=== PATIENT | male | born 1990 | race Caucasian/White ===

== ENCOUNTER 2016-07-09 20:33 | Emergency (ER) | payer OTHER ==
--- NOTE | 2016-07-09 22:02 | ED NURSING NOTES ---
Clinical Report - Nurses [facility] [address] [place] [address] 07/09/2016 20:35 Patient: ANTHONY DOMINIQUE TRIAGE Triage time 20:44. Acuity: LEVEL 3. Chief Complaint: LEFT UPPER EXTREMITY PAIN. Location of symptoms- left 5th finger (lac 2-3cm, pressure held in triage). Alert. No acute distress. SEPSIS SCREEN: Sepsis Screen. Negative (no infection suspected/documented). JAI COMA SCORE: Jai Coma Scale: 15- eyes open spontaneously (4); best verbal response- oriented x 4 (5); best motor response- obeys commands (6). --20:48 Ramon Tirado R.N. 20:46 07/09/16. BP: 138/84. HR: 76. RR: 20. O2 saturation: 100% on room air. Temp: 98.6 F (oral). Pain level now 8/10. --20:48 Ramon Tirado R.N. Weight: 74.8 kg stated. Height/Length: 71 inches Per Patient. BMI: 23. --20:46 Ramon Tirado R.N. Medications None. --20:48 Ramon Tirado R.N. Allergies No Known Drug Allergy. --20:48 Ramon Tirado R.N. Medication/allergy information source: the patient. --20:48 Ramon Tirado R.N. History ( lac to left 5th finger. 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 Injury occurred. This occurred just prior to arrival. Occurred at home. Treatment MUTUAL FUND ACCOUNTANT: None. PAST MEDICAL HX: Tetanus status: up-to-date. SOCIAL HX: Heavy tobacco smoker (cigarette)- less than 1 pack per day. Occasional alcohol use. History of drug use: marijuana. FALL RISK ASSESSMENT: Fall risk assessment completed. No fall risk identified. NUTRITIONAL RISK ASSESSMENT: The nutritional risk assessment revealed no deficiencies. FUNCTIONAL ASSESSMENT: Functional assessment: no impairments noted. LEARNING NEEDS ASSESSMENT: The learning needs assessment revealed no barriers. SKIN INTEGRITY ASSESSMENT: Skin integrity risk assessment completed. No skin integrity risk identified. --20:48 Ramon Tirado R.N. PROBLEMS: no known problems. ADDITIONAL SURGERIES: no known surgeries. Interventions ID band on patient. To treatment room. --20:48 Ramon Tirado R.N. PHYSICAL ASSESSMENT Ambulatory to room. GENERAL / NEURO / PSYCH: Oriented X 4. Alert. Appears in pain. EXTREMITIES: Neuro-vascular status intact to the extremity. Left hand: deep 2.5 cm laceration with bleeding. SKIN: Skin is warm. --20:49 Ramon Tirado R.N. NURSING PROGRESS NOTES 20:49 07/09/16. The plan of care for this patient has been created. Call light placed in reach. Bed placed in lowest position. Brakes of bed on. Patient ready for evaluation- chart flagged. --20:49 Ramon Tirado R.N. ( wound cleansed and irrigated with sodium chloride @ 2140). --21:45 Ashley Graham 22:24 07/09/2016 Ancef (CeFAZolin Sodium) IM 2 gm given. Given in the right anterior lateral thigh and left anterior lateral thigh (split dose). Allergies verified and confirmed 5 rights. (reconstituted with 2.5ml 1% lidocaine as verified by pharmacy). --22:31 Ramon Tirado R.N. DISPOSITION / DISCHARGE 22:32 07/09/16. Departure time: 2231. Condition at departure: improved and stable. No learning barriers present. Discharge instructions provided and reviewed with the patient and family. Reviewed medication(s) side effects, precautions, dosing and course information. Prescription(s) given to the patient. Patient and family verbalized understanding. Written instructions provided in Mongolian. ( suture removal in 7 days.). The patient was discharged by the physician housing assistant. He was discharged home and accompanied by parent. He left the Emergency Department ambulatory and via private vehicle. Parent driving. --22:32 Ramon Tirado R.N. 22:31 07/09/16. BP: 130/84. HR: 82. RR: 16. O2 saturation: 100% on room air. Pain level now 0/10. --22:32 Ramon Tirado R.N. Locked/Released at 07/09/2016 22:44 by Ramon Tirado R.N.
--- NOTE | 2016-07-09 22:02 | ED CLINICAL REPORT ---
Clinical Report - Physicians/Mid Levels [facility] [address] [place] [address] 07/09/2016 20:35 Patient: ANTHONY DOMINIQUE Time Seen: 21:13 Jul 09 2016. Arrived- By private vehicle. Historian- patient (step dad). HISTORY OF PRESENT ILLNESS Chief Complaint: Injury to the left 5th (little) finger. The injury happened just prior to arrival. The patient sustained a laceration. Occurred at home. Patient is experiencing mild pain. Patient denies injury to the head or neck. ( Sustained a laceration from a night just prior to arrival, while attempting to car. Denies any difficulty with movement. Denies prior injury to the area. Last tetanus medication in the last few years.). REVIEW OF SYSTEMS The patient sustained a laceration. No tingling or numbness. All systems otherwise negative, except as recorded above. PAST HISTORY The patient's dominant hand is the right. He has not had a prior injury to the same area. Tetanus immunization status is up-to-date. SOCIAL HISTORY Smoker- current status unknown. Alcohol use. History of drug use: marijuana. ADDITIONAL NOTES The nursing notes have been reviewed. PHYSICAL EXAM Vital Signs: 07/09/2016 20:46 BP: 138/84. HR: 76. RR: 20. O2 saturation: 100%. Temp: 98.6 F. Appearance: Alert. No acute distress. Head: Head atraumatic. ENT: Ears normal. CVS: Normal heart rate and rhythm. Heart sounds normal. Respiratory: No respiratory distress. Breath sounds normal. Skin: Skin warm. Extremities: Left hand web space. No tenderness or swelling. Left little finger: 2.0 cm laceration of the ulnar aspect- SEE LACERATION PROCEDURE NOTE #1; (lateral ulnar lac into the tip with minimal extension of lateral aspect of nail. no nail bed involvement. Tender, gaping open). No ecchymosis or foreign body. No limitation in movement. No subungual hematoma or amputation present. No wrist injury. Neuro, Vascular and Tendons: Vascular status intact. Motor intact. Neuro: Oriented X 3. LABS, X-RAYS, AND EKG Lt UE Digits X-ray: (IMPRESSION: 1. Minimally distracted avulsion fracture of the base of the middle phalanx, left fifth finger. 2. Findings discussed with MIKE Abdullahi. Electronically Final signed by:Faisal Clifford MD 07/09/2016 10:04:09 PM). PROGRESS AND PROCEDURES Laceration Repair: Time: 2214Jul 09 2016. Location: (left 5th digit). Time-out completed immediately before the procedure. Length: 2 cm. Complexity: simple (local anesthesia used and sutured). Subcutaneous closure: interrupted 4-0 (6 sutures). Post-procedure: he is stable and there are no complications. Bleeding is controlled and neuro-vascular status is intact distal to the wound. Dressing applied. Course of Care: Questionable avulsion, and setting of an open wound, will treat. Patient with immunizations are up-to-date, given Ancef 2 g in the emergency department, continued to continue Keflex. Splint applied as well, for comfort. 07/09/2016 22:31 BP: 130/84. HR: 82. RR: 16. O2 saturation: 100%. Patient is stable. Symptoms better. Patient/family counseled. Disposition: Discharged. CLINICAL IMPRESSION Distal phalanx fracture of the left little finger. Laceration to the left little finger.No foreign body present or left fingernail injury. INSTRUCTIONS Elevate affected areas above chest level. Protect wound and keep wound area clean. Clean wounds with hydrogen peroxide. Sutures/ellis should be removed in seven days. [facility]: [address], [place] [address] ). Prescription Medications: Cephalexin 500 mg: take 1 capsule orally every 8 hours for 10 days. No refill. OTC Medications: Take OTC medications according to label instructions. Available over the counter. Acetaminophen (available over the counter): take according to label instructions. Motrin (available over the counter): take according to label instructions. Follow-up: Follow up with your doctor in seven days. Understanding of the discharge instructions verbalized by patient. [facility]-up with: [facility], , [address], [facility] [address] Follow up in seven days. (Electronically signed by Loreta Man P.A.-C 07/09/2016 22:43)
--- NOTE | 2016-07-09 22:02 | ED ORDER SUMMARY ---
..... Patient: ANTHONY DOMINIQUE OrderSheet [facility] VisitID: [id number] [place] [address] 25y, M Registration Date/Time: 07/09/2016 ORDER SHEET Weight: 74.8 kg (stated) Allergies: No Known Drug Allergy GENERAL ORDERS: Finger Left (5) Urgent (21:08 07/09/2016 EKoroleva P.A.-C) (Ack 21:10 LMuller) (22:17 JQuivey R.N.) Wound Irrigation (21:26 07/09/2016 EKoroleva P.A.-C) (21:48 JQuivey R.N.) MEDICATION ORDERS: Ancef IM 2 gm (NOW) (22:08 07/09/2016 EKorolefaisal P.A.-C) (22:31 KWilliams R.N.) IV FLUIDS: ORDER SHEET NOTES: [Electronically signed by Loreta ManATano-C (22:43 07/09/2016)] [Electronically signed by Ramon Tirado R.N. (22:44 07/09/2016)] [Electronically locked/signed by Ramon Tirado R.N. (22:44 07/09/2016)]
--- NOTE | 2016-07-09 22:02 | ED NURSING NOTES ---
Clinical Report - Nurses [facility] [address] [place] [address] 07/09/2016 20:35 Patient: ANTHONY DOMINIQUE TRIAGE Triage time 20:44. Acuity: LEVEL 3. Chief Complaint: LEFT UPPER EXTREMITY PAIN. Location of symptoms- left 5th finger (lac 2-3cm, pressure held in triage). Alert. No acute distress. SEPSIS SCREEN: Sepsis Screen. Negative (no infection suspected/documented). JAI COMA SCORE: Jai Coma Scale: 15- eyes open spontaneously (4); best verbal response- oriented x 4 (5); best motor response- obeys commands (6). --20:48 Ramon Tirado R.N. 20:46 07/09/16. BP: 138/84. HR: 76. RR: 20. O2 saturation: 100% on room air. Temp: 98.6 F (oral). Pain level now 8/10. --20:48 Ramon Tirado R.N. Weight: 74.8 kg stated. Height/Length: 71 inches Per Patient. BMI: 23. --20:46 Ramon Tirado R.N. Medications None. --20:48 Ramon Tirado R.N. Allergies No Known Drug Allergy. --20:48 Ramon Tirado R.N. Medication/allergy information source: the patient. --20:48 Ramon Tirado R.N. History ( lac to left 5th finger. 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 Injury occurred. This occurred just prior to arrival. Occurred at home. Treatment SUBWAY OPERATOR: None. PAST MEDICAL HX: Tetanus status: up-to-date. SOCIAL HX: Heavy tobacco smoker (cigarette)- less than 1 pack per day. Occasional alcohol use. History of drug use: marijuana. FALL RISK ASSESSMENT: Fall risk assessment completed. No fall risk identified. NUTRITIONAL RISK ASSESSMENT: The nutritional risk assessment revealed no deficiencies. FUNCTIONAL ASSESSMENT: Functional assessment: no impairments noted. LEARNING NEEDS ASSESSMENT: The learning needs assessment revealed no barriers. SKIN INTEGRITY ASSESSMENT: Skin integrity risk assessment completed. No skin integrity risk identified. --20:48 Ramon Tirado R.N. PROBLEMS: no known problems. ADDITIONAL SURGERIES: no known surgeries. Interventions ID band on patient. To treatment room. --20:48 Ramon Tirado R.N. PHYSICAL ASSESSMENT Ambulatory to room. GENERAL / NEURO / PSYCH: Oriented X 4. Alert. Appears in pain. EXTREMITIES: Neuro-vascular status intact to the extremity. Left hand: deep 2.5 cm laceration with bleeding. SKIN: Skin is warm. --20:49 Ramon Tirado R.N. NURSING PROGRESS NOTES 20:49 07/09/16. The plan of care for this patient has been created. Call light placed in reach. Bed placed in lowest position. Brakes of bed on. Patient ready for evaluation- chart flagged. --20:49 Ramon Tirado R.N. ( wound cleansed and irrigated with sodium chloride @ 2140). --21:45 Ashley Graham 22:24 07/09/2016 Ancef (CeFAZolin Sodium) IM 2 gm given. Given in the right anterior lateral thigh and left anterior lateral thigh (split dose). Allergies verified and confirmed 5 rights. (reconstituted with 2.5ml 1% lidocaine as verified by pharmacy). --22:31 Ramon Tirado R.N. DISPOSITION / DISCHARGE 22:32 07/09/16. Departure time: 2231. Condition at departure: improved and stable. No learning barriers present. Discharge instructions provided and reviewed with the patient and family. Reviewed medication(s) side effects, precautions, dosing and course information. Prescription(s) given to the patient. Patient and family verbalized understanding. Written instructions provided in Niuean. ( suture removal in 7 days.). The patient was discharged by the physician business banking sales assistant. He was discharged home and accompanied by parent. He left the Emergency Department ambulatory and via private vehicle. Parent driving. --22:32 Ramon Tirado R.N. 22:31 07/09/16. BP: 130/84. HR: 82. RR: 16. O2 saturation: 100% on room air. Pain level now 0/10. --22:32 Ramon Tirado R.N. Locked/Released at 07/09/2016 22:44 by Ramon Tirado R.N.
--- NOTE | 2016-07-09 22:02 | ED CLINICAL REPORT ---
Clinical Report - Physicians/Mid Levels [facility] [address] [place] [address] 07/09/2016 20:35 Patient: ANTHONY DOMINIQUE Time Seen: 21:13 Jul 09 2016. Arrived- By private vehicle. Historian- patient (step dad). HISTORY OF PRESENT ILLNESS Chief Complaint: Injury to the left 5th (little) finger. The injury happened just prior to arrival. The patient sustained a laceration. Occurred at home. Patient is experiencing mild pain. Patient denies injury to the head or neck. ( Sustained a laceration from a night just prior to arrival, while attempting to car. Denies any difficulty with movement. Denies prior injury to the area. Last tetanus medication in the last few years.). REVIEW OF SYSTEMS The patient sustained a laceration. No tingling or numbness. All systems otherwise negative, except as recorded above. PAST HISTORY The patient's dominant hand is the right. He has not had a prior injury to the same area. Tetanus immunization status is up-to-date. SOCIAL HISTORY Smoker- current status unknown. Alcohol use. History of drug use: marijuana. ADDITIONAL NOTES The nursing notes have been reviewed. PHYSICAL EXAM Vital Signs: 07/09/2016 20:46 BP: 138/84. HR: 76. RR: 20. O2 saturation: 100%. Temp: 98.6 F. Appearance: Alert. No acute distress. Head: Head atraumatic. ENT: Ears normal. CVS: Normal heart rate and rhythm. Heart sounds normal. Respiratory: No respiratory distress. Breath sounds normal. Skin: Skin warm. Extremities: Left hand web space. No tenderness or swelling. Left little finger: 2.0 cm laceration of the ulnar aspect- SEE LACERATION PROCEDURE NOTE #1; (lateral ulnar lac into the tip with minimal extension of lateral aspect of nail. no nail bed involvement. Tender, gaping open). No ecchymosis or foreign body. No limitation in movement. No subungual hematoma or amputation present. No wrist injury. Neuro, Vascular and Tendons: Vascular status intact. Motor intact. Neuro: Oriented X 3. LABS, X-RAYS, AND EKG Lt UE Digits X-ray: (IMPRESSION: 1. Minimally distracted avulsion fracture of the base of the middle phalanx, left fifth finger. 2. Findings discussed with MIKE Abdullahi. Electronically Final signed by:Faisal Clifford MD 07/09/2016 10:04:09 PM). PROGRESS AND PROCEDURES Laceration Repair: Time: 2214Jul 09 2016. Location: (left 5th digit). Time-out completed immediately before the procedure. Length: 2 cm. Complexity: simple (local anesthesia used and sutured). Subcutaneous closure: interrupted 4-0 (6 sutures). Post-procedure: he is stable and there are no complications. Bleeding is controlled and neuro-vascular status is intact distal to the wound. Dressing applied. Course of Care: Questionable avulsion, and setting of an open wound, will treat. Patient with immunizations are up-to-date, given Ancef 2 g in the emergency department, continued to continue Keflex. Splint applied as well, for comfort. 07/09/2016 22:31 BP: 130/84. HR: 82. RR: 16. O2 saturation: 100%. Patient is stable. Symptoms better. Patient/family counseled. Disposition: Discharged. CLINICAL IMPRESSION Distal phalanx fracture of the left little finger. Laceration to the left little finger.No foreign body present or left fingernail injury. INSTRUCTIONS Elevate affected areas above chest level. Protect wound and keep wound area clean. Clean wounds with hydrogen peroxide. Sutures/ellis should be removed in seven days. ([facility] Address: [address], [place] [address] ). Prescription Medications: Cephalexin 500 mg: take 1 capsule orally every 8 hours for 10 days. No refill. OTC Medications: Take OTC medications according to label instructions. Available over the counter. Acetaminophen (available over the counter): take according to label instructions. Motrin (available over the counter): take according to label instructions. Follow-up: Follow up with your doctor in seven days. Understanding of the discharge instructions verbalized by patient. Follow-up with: [facility], , [address], [facility] [address] Follow up in seven days. (Electronically signed by Loreta Man P.A.-C 07/09/2016 22:43)
--- NOTE | 2016-07-09 22:02 | ED ORDER SUMMARY ---
..... Patient: ANTHONY DOMINIQUE OrderSheet [facility] VisitID: [id number] [place] [address] 25y, M Registration Date/Time: 07/09/2016 ORDER SHEET Weight: 74.8 kg (stated) Allergies: No Known Drug Allergy GENERAL ORDERS: Finger Left (5) Urgent (21:08 07/09/2016 EKoroleva P.A.-C) (Ack 21:10 LMuller) (22:17 JQuivey R.N.) Wound Irrigation (21:26 07/09/2016 EKoroleva P.A.-C) (21:48 JQuivey R.N.) MEDICATION ORDERS: Ancef IM 2 gm (NOW) (22:08 07/09/2016 EKorolefaisal P.A.-C) (22:31 KWilliams R.N.) IV FLUIDS: ORDER SHEET NOTES: [Electronically signed by Loreta ManATano-C (22:43 07/09/2016)] [Electronically signed by Ramon Tirado R.N. (22:44 07/09/2016)] [Electronically locked/signed by Ramon Tirado R.N. (22:44 07/09/2016)]
--- NOTE | 2016-07-09 22:07 | DIAGNOSTIC IMAGING REPORT ---
PROCEDURE: XR FINGER - LEFT (fifth finger). INDICATION: TRAUMA/INJURY TECHNIQUE: Three views. COMPARISON: None. FINDINGS: There is a minimally distracted 1 mm avulsion fracture of the volar base, middle phalanx, left fifth finger. The rest the osseous structures are normal. IMPRESSION: 1. Minimally distracted avulsion fracture of the base of the middle phalanx, left fifth finger. 2. Findings discussed with PAC. Bradly
--- NOTE | 2016-07-09 22:44 | ED DISCHARGE INSTRUCTIONS ---
Patient: ANTHONY DOMINIQUE General Instructions [facility] VisitID: [id number] [address] [place] [address] 25y, M Registration Date/Time: 07/09/2016 Distal phalanx fracture of the left little finger. Laceration to the left little finger.No foreign body present or left fingernail injury. INSTRUCTIONS Elevate affected areas above chest level. Protect wound and keep wound area clean. Clean wounds with hydrogen peroxide. Sutures/ellis should be removed in seven days. ([facility] Address: [address] [place] [address] ). Prescription Medications: Cephalexin 500 mg: take 1 capsule orally every 8 hours for 10 days. No refill. OTC Medications: Take OTC medications according to label instructions. Available over the counter. Acetaminophen (available over the counter): take according to label instructions. Motrin (available over the counter): take according to label instructions. Follow-up: Follow up with your doctor in seven days. Understanding of the discharge instructions verbalized by patient. [facility] with: [facility], , [address], [place] [address] Follow up in seven days. ADDITIONAL INFORMATION Laceration, Extremity (Sutures, [place], Or Tape) A laceration is a cut through the skin. This will usually require stitches (sutures) or ellis if it is deep. Minor cuts may be treated with surgical tape closures. Home care The following guidelines will help you care for your laceration at home: Keep the wound clean and dry. If a bandage was applied and it becomes wet or dirty, replace it. Otherwise, leave it in place for the first 24 hours, then change it once a day or as directed. If stitches or ellis were used, clean the wound daily: After removing the bandage, wash the area with soap and water. Use a wet cotton swab to loosen and remove any blood or crust that forms. After cleaning, keep the wound clean and dry. Talk with your doctor before applying any antibiotic ointment to the wound. Reapply the bandage. You may remove the bandage to shower as usual after the first 24 hours, but do not soak the area in water (no swimming) until the stitches or ellis are removed. If surgical tape closures were used, keep the area clean and dry. If it becomes wet, blot it dry with a towel. The doctor may prescribe an antibiotic cream or ointment to prevent infection. Do not stop taking this medication until you have finished the prescribed course or the doctor tells you to stop. The doctor may also prescribe medications for pain. Follow the doctors instructions for taking these medications. If you have chronic liver or kidney disease or ever had a stomach ulcer or GI bleeding, talk with your doctor before using these medicines. Follow-up care Follow up with your health care provider. Most skin wounds heal within ten days. However, an infection may sometimes occur despite proper treatment. Therefore, check the wound daily for the signs of infection listed below. Stitches and ellis should be removed within 714 days. If surgical tape closures were used, you may remove them after 10 days, if they have not fallen off by then. Notify your doctor if you notice persistent numbness or weakness in the injured extremity. (Note:A radiologist will review any X-rays that were taken. We will notify you of any new findings that may affect your care.) When to seek medical care Get prompt medical attention if any of these occur: Increasing pain in the wound Redness, swelling, or pus coming from the wound Fever of 100.4F (38C) or higher, or as directed by your health care provider If stitches or ellis come apart or fall out before your next appointment If the surgical tape closures fall off within seven days, or the wound edges re-open Bleeding not controlled by direct pressure Fracture:Finger [Open] You have a fracture of your finger (broken finger) with a nearby cut, puncture or deep scrape. This causes local pain, swelling and bruising. Because of the open injury, there is a risk of infection in the skin and bone. Antibiotics will be used to lower the risk of infection. This injury takes about four weeks to heal. Finger injuries are often treated with a splint, cast or by taping the injured finger to the next one ("lee taping"). This protects the injured finger and holds the bone in position while it heals. More serious fractures may require surgery. If the FINGERNAIL has been severely injured, it will probably fall off in 1-2 weeks. A new fingernail will usually start to grow back within a month. Home Care: Keep your hand elevated to reduce pain and swelling. When sitting or lying down elevate your arm above the level of your heart. You can do this by placing your arm on a pillow that rests on your chest or on a pillow at your side. This is most important during the first 48 hours after injury. Apply an ice pack (ice cubes in a plastic bag, wrapped in a towel) over the injured area for 20 minutes every 1-2 hours the first day for pain relief. Continue this 3-4 times a day until the pain and swelling goes away. Keep the cast/splint completely dry at all times. Bathe with your cast/splint out of the water, protected with a large plastic bag, rubber-banded at the top end. If a fiberglass cast/splint gets wet, you can dry it with a hair-dryer. If lee tape was applied and it becomes wet or dirty, change it. You may replace it with paper, plastic or cloth tape. Cloth tape and paper tapes must be kept dry. Keep the lee tape in place for at least four weeks. You may use acetaminophen (Tylenol) or ibuprofen (Motrin, Advil) to control pain, unless another pain medicine was prescribed. [ NOTE : If you have chronic liver or kidney disease or ever had a stomach ulcer or GI bleeding, talk with your doctor before using these medicines.] Take all antibiotics until finished. Follow Up with your doctor within one week, or as advised by our staff, to be sure the bone is healing properly, . [NOTE: A radiologist will review any X-rays that were taken. We will notify you of any new findings that may affect your care.] Return Promptly or contact your doctor if any of the following occur: The plaster cast or splint becomes wet or soft The fiberglass cast or splint remains wet for more than 24 hours Pain or swelling increase Finger becomes cold, blue, numb or tingly Redness, warmth, swelling, drainage from the wound or foul odor from a cast or splint Fever of 100.4F (38C) or higher, or as directed by your healthcare provider Cephalexin Monohydrate Oral tablet What is this medicine? CEPHALEXIN (sef a LACY in) is a cephalosporin antibiotic. It is used to treat certain kinds of bacterial infections It will not work for colds, flu, or other viral infections. How should I use this medicine? Take this medicine by mouth with a full glass of water. Follow the directions on the prescription label. This medicine can be taken with or without food. Take your medicine at regular intervals. Do not take your medicine more often than directed. Take all of your medicine as directed even if you think you are better. Do not skip doses or stop your medicine early. Talk to your photo engraver regarding the use of this medicine in children. While this drug may be prescribed for selected conditions, precautions do apply. What side effects may I notice from receiving this medicine? Side effects that you should report to your doctor or health rn transitional care as soon as possible: allergic reactions like skin rash, itching or hives, swelling of the face, lips, or tongue breathing problems pain or trouble passing urine redness, blistering, peeling or loosening of the skin, including inside the mouth severe or watery diarrhea unusually weak or tired yellowing of the eyes, skin Side effects that usually do not require medical attention (report to your doctor or health rn transitional care if they continue or are bothersome): gas or heartburn genital or anal irritation headache joint or muscle pain nausea, vomiting What may interact with this medicine? probenecid some other antibiotics What if I miss a dose? If you miss a dose, take it as soon as you can. If it is almost time for your next dose, take only that dose. Do not take double or extra doses. There should be at least 4 to 6 hours between doses. Where should I keep my medicine? Keep out of the reach of children. Store at room temperature between 59 and 86 degrees F (15 and 30 degrees C). Throw away any unused medicine after the expiration date. What should I tell my health care provider before I take this medicine? They need to know if you have any of these conditions: kidney disease stomach or intestine problems, especially colitis an unusual or allergic reaction to cephalexin, other cephalosporins, penicillins, other antibiotics, medicines, foods, dyes or preservatives or trying to get breast-feeding What should I watch for while using this medicine? Tell your doctor or health rn transitional care if your symptoms do not begin to improve in a few days. Do not treat diarrhea with over the counter products. Contact your doctor if you have diarrhea that lasts more than 2 days or if it is severe and watery. If you have diabetes, you may get a false-positive result for sugar in your urine. Check with your doctor or health rn transitional care. You have been given the following additional information: Laceration, Extrem (Suture, Staple, Or Tape) Fracture, Finger (Open) Cephalexin Monohydrate Oral tablet (Electronically signed by Loreta Man P.A.-C 07/09/2016 22:43)
--- NOTE | 2016-07-09 22:44 | ED MED RECONCILIATION SUMMARY ---
Patient: ANTHONY DOMINIQUE Medication Reconciliation Report [facility] VisitID: [id number] [place] [address] 25y, M Registration Date/Time: 07/09/2016 Weight: 74.8 kg Height/Length: 71 in. BMI: 23.0 ALLERGIES: No Known Drug Allergy The patient's Home Medications are listed below: NONE. The source(s) of the original Home Medication information: patient The following Medications were given to the patient in the Emergency Department: Ancef [IM] IM 2 gm, administered: 07/09/2016 10:24:00 PM The following Medications were prescribed to the patient: Take OTC medications according to label instructions. Available over the counter. -- Loreta Man, P.A.-C Acetaminophen (available over the counter): take according to label instructions. -- Loreta Man, P.A.-C Motrin (available over the counter): take according to label instructions. -- Loreta Man, P.A.-C Cephalexin 500 mg: take 1 capsule orally every 8 hours for 10 days. No refill. -- Loreta Man, P.A.-C
--- NOTE | 2016-07-09 22:44 | ED MAR SUMMARY ---
..... Medication Administration Record [facility] [address] [place] [address] Patient: ANTHONY DOMINIQUE Visit ID: [id number] 25y, M Weight: 74.8 kg Height/Length: 71 in BMI: 23 ALLERGIES: No Known Drug Allergy Given 22:24 07/09/2016 Ramon Tirado R.N. Medication Administered: ANCEF [IM] (CEFAZOLIN SODIUM), Dose: 2 gm IM. Medication Ordered: Ancef IM 2 gm (NOW).
--- NOTE | 2016-07-09 22:44 | ED DISCHARGE INSTRUCTIONS ---
Patient: ANTHONY DOMINIQUE General Instructions [facility] VisitID: [id number] [address] [place] [address] 25y, M Registration Date/Time: 07/09/2016 Distal phalanx fracture of the left little finger. Laceration to the left little finger.No foreign body present or left fingernail injury. INSTRUCTIONS Elevate affected areas above chest level. Protect wound and keep wound area clean. Clean wounds with hydrogen peroxide. Sutures/ellis should be removed in seven days. ([facility] Address: [address] [place] [address] ). Prescription Medications: Cephalexin 500 mg: take 1 capsule orally every 8 hours for 10 days. No refill. OTC Medications: Take OTC medications according to label instructions. Available over the counter. Acetaminophen (available over the counter): take according to label instructions. Motrin (available over the counter): take according to label instructions. Follow-up: Follow up with your doctor in seven days. Understanding of the discharge instructions verbalized by patient. Follow-up with: [facility], , [address], [place] [address] Follow up in seven days. ADDITIONAL INFORMATION Laceration, Extremity (Sutures, [place], Or Tape) A laceration is a cut through the skin. This will usually require stitches (sutures) or ellis if it is deep. Minor cuts may be treated with surgical tape closures. Home care The following guidelines will help you care for your laceration at home: Keep the wound clean and dry. If a bandage was applied and it becomes wet or dirty, replace it. Otherwise, leave it in place for the first 24 hours, then change it once a day or as directed. If stitches or ellis were used, clean the wound daily: After removing the bandage, wash the area with soap and water. Use a wet cotton swab to loosen and remove any blood or crust that forms. After cleaning, keep the wound clean and dry. Talk with your doctor before applying any antibiotic ointment to the wound. Reapply the bandage. You may remove the bandage to shower as usual after the first 24 hours, but do not soak the area in water (no swimming) until the stitches or ellis are removed. If surgical tape closures were used, keep the area clean and dry. If it becomes wet, blot it dry with a towel. The doctor may prescribe an antibiotic cream or ointment to prevent infection. Do not stop taking this medication until you have finished the prescribed course or the doctor tells you to stop. The doctor may also prescribe medications for pain. Follow the doctors instructions for taking these medications. If you have chronic liver or kidney disease or ever had a stomach ulcer or GI bleeding, talk with your doctor before using these medicines. Follow-up care Follow up with your health care provider. Most skin wounds heal within ten days. However, an infection may sometimes occur despite proper treatment. Therefore, check the wound daily for the signs of infection listed below. Stitches and ellis should be removed within 714 days. If surgical tape closures were used, you may remove them after 10 days, if they have not fallen off by then. Notify your doctor if you notice persistent numbness or weakness in the injured extremity. (Note:A radiologist will review any X-rays that were taken. We will notify you of any new findings that may affect your care.) When to seek medical care Get prompt medical attention if any of these occur: Increasing pain in the wound Redness, swelling, or pus coming from the wound Fever of 100.4F (38C) or higher, or as directed by your health care provider If stitches or ellis come apart or fall out before your next appointment If the surgical tape closures fall off within seven days, or the wound edges re-open Bleeding not controlled by direct pressure Fracture:Finger [Open] You have a fracture of your finger (broken finger) with a nearby cut, puncture or deep scrape. This causes local pain, swelling and bruising. Because of the open injury, there is a risk of infection in the skin and bone. Antibiotics will be used to lower the risk of infection. This injury takes about four weeks to heal. Finger injuries are often treated with a splint, cast or by taping the injured finger to the next one ("lee taping"). This protects the injured finger and holds the bone in position while it heals. More serious fractures may require surgery. If the FINGERNAIL has been severely injured, it will probably fall off in 1-2 weeks. A new fingernail will usually start to grow back within a month. Home Care: Keep your hand elevated to reduce pain and swelling. When sitting or lying down elevate your arm above the level of your heart. You can do this by placing your arm on a pillow that rests on your chest or on a pillow at your side. This is most important during the first 48 hours after injury. Apply an ice pack (ice cubes in a plastic bag, wrapped in a towel) over the injured area for 20 minutes every 1-2 hours the first day for pain relief. Continue this 3-4 times a day until the pain and swelling goes away. Keep the cast/splint completely dry at all times. Bathe with your cast/splint out of the water, protected with a large plastic bag, rubber-banded at the top end. If a fiberglass cast/splint gets wet, you can dry it with a hair-dryer. If lee tape was applied and it becomes wet or dirty, change it. You may replace it with paper, plastic or cloth tape. Cloth tape and paper tapes must be kept dry. Keep the lee tape in place for at least four weeks. You may use acetaminophen (Tylenol) or ibuprofen (Motrin, Advil) to control pain, unless another pain medicine was prescribed. [ NOTE : If you have chronic liver or kidney disease or ever had a stomach ulcer or GI bleeding, talk with your doctor before using these medicines.] Take all antibiotics until finished. Follow Up with your doctor within one week, or as advised by our staff, to be sure the bone is healing properly, . [NOTE: A radiologist will review any X-rays that were taken. We will notify you of any new findings that may affect your care.] Return Promptly or contact your doctor if any of the following occur: The plaster cast or splint becomes wet or soft The fiberglass cast or splint remains wet for more than 24 hours Pain or swelling increase Finger becomes cold, blue, numb or tingly Redness, warmth, swelling, drainage from the wound or foul odor from a cast or splint Fever of 100.4F (38C) or higher, or as directed by your healthcare provider Cephalexin Monohydrate Oral tablet What is this medicine? CEPHALEXIN (sef a LACY in) is a cephalosporin antibiotic. It is used to treat certain kinds of bacterial infections It will not work for colds, flu, or other viral infections. How should I use this medicine? Take this medicine by mouth with a full glass of water. Follow the directions on the prescription label. This medicine can be taken with or without food. Take your medicine at regular intervals. Do not take your medicine more often than directed. Take all of your medicine as directed even if you think you are better. Do not skip doses or stop your medicine early. Talk to your esthetician/skin therapist regarding the use of this medicine in children. While this drug may be prescribed for selected conditions, precautions do apply. What side effects may I notice from receiving this medicine? Side effects that you should report to your doctor or health critical care nurse practitioner as soon as possible: allergic reactions like skin rash, itching or hives, swelling of the face, lips, or tongue breathing problems pain or trouble passing urine redness, blistering, peeling or loosening of the skin, including inside the mouth severe or watery diarrhea unusually weak or tired yellowing of the eyes, skin Side effects that usually do not require medical attention (report to your doctor or health critical care nurse practitioner if they continue or are bothersome): gas or heartburn genital or anal irritation headache joint or muscle pain nausea, vomiting What may interact with this medicine? probenecid some other antibiotics What if I miss a dose? If you miss a dose, take it as soon as you can. If it is almost time for your next dose, take only that dose. Do not take double or extra doses. There should be at least 4 to 6 hours between doses. Where should I keep my medicine? Keep out of the reach of children. Store at room temperature between 59 and 86 degrees F (15 and 30 degrees C). Throw away any unused medicine after the expiration date. What should I tell my health care provider before I take this medicine? They need to know if you have any of these conditions: kidney disease stomach or intestine problems, especially colitis an unusual or allergic reaction to cephalexin, other cephalosporins, penicillins, other antibiotics, medicines, foods, dyes or preservatives or trying to get breast-feeding What should I watch for while using this medicine? Tell your doctor or health critical care nurse practitioner if your symptoms do not begin to improve in a few days. Do not treat diarrhea with over the counter products. Contact your doctor if you have diarrhea that lasts more than 2 days or if it is severe and watery. If you have diabetes, you may get a false-positive result for sugar in your urine. Check with your doctor or health critical care nurse practitioner. You have been given the following additional information: Laceration, Extrem (Suture, Staple, Or Tape) Fracture, Finger (Open) Cephalexin Monohydrate Oral tablet (Electronically signed by Loreta Man P.A.-C 07/09/2016 22:43)
--- NOTE | 2016-07-09 22:44 | ED MAR SUMMARY ---
..... Medication Administration Record [facility] [address] [place] [address] Patient: ANTHONY DOMINIQUE Visit ID: [id number] 25y, M Weight: 74.8 kg Height/Length: 71 in BMI: 23 ALLERGIES: No Known Drug Allergy Given 22:24 07/09/2016 Ramon Tirado R.N. Medication Administered: ANCEF [IM] (CEFAZOLIN SODIUM), Dose: 2 gm IM. Medication Ordered: Ancef IM 2 gm (NOW).
--- NOTE | 2016-07-09 22:44 | ED MED RECONCILIATION SUMMARY ---
Patient: ANTHONY DOMINIQUE Medication Reconciliation Report [facility] VisitID: [id number] [place] [address] 25y, M Registration Date/Time: 07/09/2016 Weight: 74.8 kg Height/Length: 71 in. BMI: 23.0 ALLERGIES: No Known Drug Allergy The patient's Home Medications are listed below: NONE. The source(s) of the original Home Medication information: patient The following Medications were given to the patient in the Emergency Department: Ancef [IM] IM 2 gm, administered: 07/09/2016 10:24:00 PM The following Medications were prescribed to the patient: Take OTC medications according to label instructions. Available over the counter. -- Loreta Man, P.A.-C Acetaminophen (available over the counter): take according to label instructions. -- Loreta Man, P.A.-C Motrin (available over the counter): take according to label instructions. -- Loreta aMn, P.A.-C Cephalexin 500 mg: take 1 capsule orally every 8 hours for 10 days. No refill. -- Loreta Man, P.A.-C
== END 2016-07-09 22:32 | disposition home or self-care (01) ==
LOC: ED SRH 20:33
DX: S62.637A Displaced fracture of distal phalanx of left little finger, initial encounter for closed fracture (principal); S61.217A Laceration without foreign body of left little finger without damage to nail, initial encounter; W26.0XXA Contact with knife, initial encounter; Y93.89 Activity, other specified; Y92.019 Unspecified place in single-family (private) house as the place of occurrence of the external cause; Y99.9 Unspecified external cause status; F17.200 Nicotine dependence, unspecified, uncomplicated

== ENCOUNTER 2016-08-31 04:25 | Emergency (ER) | payer OTHER ==
--- NOTE | 2016-08-31 06:08 | ED CLINICAL REPORT ---
Clinical Report - Physicians/Mid Levels [facility] [address] [place] [address] 08/31/2016 4:25 Patient: ANTHONY DOMINIQUE Time Seen: 04:46. HISTORY OF PRESENT ILLNESS Chief Complaint: Injury to the left wrist. The injury happened yesterday. [email or web address] ( Pt fell onto outstretched L hand.). Patient is experiencing moderate pain. No other injury. REVIEW OF SYSTEMS No swelling, tingling, numbness, weakness or foreign body. No skin laceration. PAST HISTORY Negative. See nurses notes. The patient's dominant hand is the right. Tetanus immunization status is up-to-date. SOCIAL HISTORY Current every day light tobacco smoker. ADDITIONAL NOTES The nursing notes have been reviewed. PHYSICAL EXAM Vital Signs: 08/31/2016 06:11 BP: 132/89. HR: 87. RR: 16. O2 saturation: 100%. Temp: 98.1 F. 08/31/2016 05:29 BP: 132/82. HR: 87. RR: 16. O2 saturation: 100%. Pain level now: 10/10. 08/31/2016 04:37 BP: 143/77. HR: 87. RR: 16. O2 saturation: 98%. Temp: 97.5 F. Pain level now: 10/10. Appearance: Alert. No acute distress. CVS: Heart sounds normal. Respiratory: No respiratory distress. Breath sounds normal. Chest nontender. Abdomen: No visible injury. Soft and nontender. Back: (Small abrasion over the lower LS spine.). Skin: Skin warm. Skin intact. Extremities: Left elbow: mild tenderness. Neurovascular intact distally. No swelling, abrasion, ecchymosis or deformity. No joint effusion. Anatomic snuffbox, left arm: moderate tenderness and mild swelling. Neurovascular intact distally. No hand injury. Neuro, Vascular and Tendons: Vascular status intact. Sensation intact. Motor intact. Tendon function intact. Neuro: No alteration in mental status. No motor deficit. No sensory deficit. LABS, X-RAYS, AND EKG X-Rays: Left elbow negative. Lt Wrist X-ray: Left wrist fracture. Carpal fracture involving the scaphoid. PROGRESS AND PROCEDURES Splint Application: OCL thumb spica splint applied to left upper extremity. Splint applied by ED physician. Reassessed extremity following splint application. Neurovascular intact. Follow-up recommended for tomorrow. Course of Care: Best phone is [phone] Home phone [phone] 06:07 08/31/16. Dr De La Torre will see the patient either today or Saturday. Disposition: Discharged. Condition: stable. CLINICAL IMPRESSION Closed nondisplaced fracture of the middle one-third of the left navicular (of the wrist). INSTRUCTIONS Apply ice. Elevate affected areas above chest level. Wear sling and splint. Prescription Medications: Hydrocodone/APAP 5mg / 325mg: take 1-2 orally every 4 hours as needed. Dispense twenty (20). No refill. Follow-up with: [facility], , [address], , [place], [phone] Follow up. Reason for referral: "navicular bone fracture care". (Electronically signed by Charlie Palma MD 09/03/2016 14:28)
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
--- NOTE | 2016-08-31 06:08 | ED ORDER SUMMARY ---
..... Patient: ANTHONY DOMINIQUE OrderSheet [facility] VisitID: [id number] [place] [address] 25y, M Registration Date/Time: 08/31/2016 ORDER SHEET Weight: 74.8 kg (stated) Allergies: No Known Drug Allergy GENERAL ORDERS: Wrist 3 or 4V Left Urgent (04:46 08/31/2016 Kathy STONE) (Ack 4:46 CHernandez R.N.) (5:18 LMuller) Elbow 3 or 4V Left Urgent (04:46 08/31/2016 Kathy STONE) (Ack 4:46 Kellynandez R.N.) (5:18 LMuller) MEDICATION ORDERS: Percocet PO 5/325 mg (One tab) (05:46 08/31/2016 Kathy STONE) (Ack 5:52 Kellynandez R.N.) (5:56 CHernandez R.N.) IV FLUIDS: ORDER SHEET NOTES: [Electronically signed by Сергей Anders R.N. (06:18 08/31/2016)] [Electronically signed by Charlie Palma MD (14:28 09/03/2016)] [Electronically locked/signed by Сергей Anders R.N. (06:18 08/31/2016)]
--- NOTE | 2016-08-31 06:08 | ED CLINICAL REPORT ---
Clinical Report - Physicians/Mid Levels [facility] [address] [place] [address] 08/31/2016 4:25 Patient: ANTHONY DOMINIQUE Time Seen: 04:46. HISTORY OF PRESENT ILLNESS Chief Complaint: Injury to the left wrist. The injury happened yesterday. ([place] [place] ( Pt fell onto outstretched L hand.). Patient is experiencing moderate pain. No other injury. REVIEW OF SYSTEMS No swelling, tingling, numbness, weakness or foreign body. No skin laceration. PAST HISTORY Negative. See nurses notes. The patient's dominant hand is the right. Tetanus immunization status is up-to-date. SOCIAL HISTORY Current every day light tobacco smoker. ADDITIONAL NOTES The nursing notes have been reviewed. PHYSICAL EXAM Vital Signs: 08/31/2016 06:11 BP: 132/89. HR: 87. RR: 16. O2 saturation: 100%. Temp: 98.1 F. 08/31/2016 05:29 BP: 132/82. HR: 87. RR: 16. O2 saturation: 100%. Pain level now: 10/10. 08/31/2016 04:37 BP: 143/77. HR: 87. RR: 16. O2 saturation: 98%. Temp: 97.5 F. Pain level now: 10/10. Appearance: Alert. No acute distress. CVS: Heart sounds normal. Respiratory: No respiratory distress. Breath sounds normal. Chest nontender. Abdomen: No visible injury. Soft and nontender. Back: (Small abrasion over the lower LS spine.). Skin: Skin warm. Skin intact. Extremities: Left elbow: mild tenderness. Neurovascular intact distally. No swelling, abrasion, ecchymosis or deformity. No joint effusion. Anatomic snuffbox, left arm: moderate tenderness and mild swelling. Neurovascular intact distally. No hand injury. Neuro, Vascular and Tendons: Vascular status intact. Sensation intact. Motor intact. Tendon function intact. Neuro: No alteration in mental status. No motor deficit. No sensory deficit. LABS, X-RAYS, AND EKG X-Rays: Left elbow negative. Lt Wrist X-ray: Left wrist fracture. Carpal fracture involving the scaphoid. PROGRESS AND PROCEDURES Splint Application: OCL thumb spica splint applied to left upper extremity. Splint applied by ED physician. Reassessed extremity following splint application. Neurovascular intact. Follow-up recommended for tomorrow. Course of Care: Best phone is [phone] Home phone [phone] 06:07 08/31/16. Dr De La Torre will see the patient either today or Saturday. Disposition: Discharged. Condition: stable. CLINICAL IMPRESSION Closed nondisplaced fracture of the middle one-third of the left navicular (of the wrist). INSTRUCTIONS Apply ice. Elevate affected areas above chest level. Wear sling and splint. Prescription Medications: Hydrocodone/APAP 5mg / 325mg: take 1-2 orally every 4 hours as needed. Dispense twenty (20). No refill. Follow-up with: [facility], , [address], , [place], [phone] Follow up. Reason for referral: "navicular bone fracture care". (Electronically signed by Charlie Palma MD 09/03/2016 14:28)
--- NOTE | 2016-08-31 06:08 | ED ORDER SUMMARY ---
..... Patient: ANTHONY DOMINIQUE OrderSheet [facility] VisitID: [id number] [place] [address] 25y, M Registration Date/Time: 08/31/2016 ORDER SHEET Weight: 74.8 kg (stated) Allergies: No Known Drug Allergy GENERAL ORDERS: Wrist 3 or 4V Left Urgent (04:46 08/31/2016 Kathy STONE) (Ack 4:46 CHernandez R.N.) (5:18 LMuller) Elbow 3 or 4V Left Urgent (04:46 08/31/2016 Kathy STONE) (Ack 4:46 Kellynandez R.N.) (5:18 LMuller) MEDICATION ORDERS: Percocet PO 5/325 mg (One tab) (05:46 08/31/2016 Kathy STONE) (Ack 5:52 Kellynandez R.N.) (5:56 CHernandez R.N.) IV FLUIDS: ORDER SHEET NOTES: [Electronically signed by Сергей Anders R.N. (06:18 08/31/2016)] [Electronically signed by Charlie Palma MD (14:28 09/03/2016)] [Electronically locked/signed by Сергей Anders R.N. (06:18 08/31/2016)]
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
--- NOTE | 2016-08-31 06:53 | DIAGNOSTIC IMAGING REPORT ---
PROCEDURE: XR WRIST MIN 3 VIEWS - LEFT INDICATION: TRAUMA/INJURY TECHNIQUE: Three views. COMPARISON: None. FINDINGS: Nondisplaced fracture through the waist of the scaphoid. Normal joint spaces and soft tissues. IMPRESSION: 1. Scaphoid fracture.
--- NOTE | 2016-08-31 07:01 | DIAGNOSTIC IMAGING REPORT ---
PROCEDURE: XR ELBOW 3 OR 4 VIEWS - LEFT INDICATION: TRAUMA/INJURY TECHNIQUE: Three views. COMPARISON: None. FINDINGS: Osseous structures, joint spaces, and soft tissues are normal. No evidence of an effusion. IMPRESSION: 1. Normal left elbow.
--- NOTE | 2016-09-03 14:28 | ED DISCHARGE INSTRUCTIONS ---
Patient: ANTHONY DOMINIQUE General Instructions [facility] VisitID: [id number] [address] [place] [address] 25y, M Registration Date/Time: 08/31/2016 Closed nondisplaced fracture of the middle one-third of the left navicular (of the wrist). INSTRUCTIONS Apply ice. Elevate affected areas above chest level. Wear sling and splint. Prescription Medications: Hydrocodone/APAP 5mg / 325mg: take 1-2 orally every 4 hours as needed. Dispense twenty (20). No refill. Follow-up with: [facility], , [address] [place], [address] Follow up. Reason for referral: "navicular bone fracture care". ADDITIONAL INFORMATION Navicular Fracture (Wrist) [Certain] You have a fracture (break) of one of the small bones of your wrist. This bone heals slowly and you may need to be in a cast for up to three months. Some navicular fractures do not heal properly and require surgery at a later time. HOME CARE: 1) Keep your arm elevated to reduce pain and swelling. When sitting or lying down elevate your arm above the level of your heart. You can do this by placing your arm on a pillow that rests on your chest or on a pillow at your side. This is most important during the first 48 hours after injury. 2) Apply an ice pack (ice cubes in a plastic bag, wrapped in a towel) over the injured area for 20 minutes every 1-2 hours the first day. You can place the ice pack inside the sling and directly over the splint/cast. Continue with ice packs 3-4 times a day for the next two days, then as needed for the relief of pain and swelling. 3) Keep the cast/splint completely dry at all times. Bathe with your cast/splint out of the water, protected with a large plastic bag, rubber-banded at the top end. If a fiberglass cast/splint gets wet, you can dry it with a hair-dryer. 4) You may use acetaminophen (Tylenol) or ibuprofen (Motrin, Advil) to control pain, unless another pain medicine was prescribed. [ NOTE : If you have chronic liver or kidney disease or ever had a stomach ulcer or GI bleeding, talk with your doctor before using these medicines.] 5) If you smoke, try to quit. Tobacco use can interfere with the healing of this fracture and increase risk of a complication needing surgery. Follow Up with your doctor in one week, or as advised by our staff, to be sure the bone is healing properly. If a splint was applied, it will be changed to a cast during your follow-up visit. When you come out of the cast, you will need to have special hand and wrist exercises to recover your strength and range of motion. Some people develop permanent stiffness in the wrist after this type of injury. [NOTE: X-rays will be reviewed by a radiologist. You will be notified of any new findings that may affect your care.] Get Prompt Medical Attention if any of the following occur: -- The plaster cast or splint becomes wet or soft -- The fiberglass cast or splint remains wet for more than 24 hours -- Increased tightness or pain under the cast or splint -- Fingers become swollen, cold, blue, numb or tingly Hydrocodone Bitartrate, Acetaminophen Oral tablet What is this medicine? ACETAMINOPHEN; HYDROCODONE (a set a ELIZABETH yasir fen; gucci droe KOE done) is a pain reliever. It is used to treat mild to moderate pain. How should I use this medicine? Take this medicine by mouth. Swallow it with a full glass of water. Follow the directions on the prescription label. If the medicine upsets your stomach, take the medicine with food or milk. Do not take more than you are told to take. Talk to your roll table operator regarding the use of this medicine in children. This medicine is not approved for use in children. What side effects may I notice from receiving this medicine? Side effects that you should report to your doctor or health long term care phlebotomist as soon as possible: allergic reactions like skin rash, itching or hives, swelling of the face, lips, or tongue breathing problems confusion feeling faint or lightheaded, falls stomach pain yellowing of the eyes or skin Side effects that usually do not require medical attention (report to your doctor or health long term care phlebotomist if they continue or are bothersome): nausea, vomiting stomach upset What may interact with this medicine? alcohol antihistamines isoniazid medicines for depression, anxiety, or psychotic disturbances medicines for sleep muscle relaxants naltrexone narcotic medicines (opiates) for pain phenobarbital ritonavir tramadol What if I miss a dose? If you miss a dose, take it as soon as you can. If it is almost time for your next dose, take only that dose. Do not take double or extra doses. Where should I keep my medicine? Keep out of the reach of children. This medicine can be abused. Keep your medicine in a safe place to protect it from theft. Do not share this medicine with anyone. Selling or giving away this medicine is dangerous and against the law. Store at room temperature between 15 and 30 degrees C (59 and 86 degrees F). Protect from light. Keep container tightly closed. Throw away any unused medicine after the expiration date. Discard unused medicine and used packaging carefully. Pets and children can be harmed if they find used or lost packages. What should I tell my health care provider before I take this medicine? They need to know if you have any of these conditions: brain tumor Crohn's disease, inflammatory bowel disease, or ulcerative colitis drink more than 3 alcohol-containing drinks per day drug abuse or addiction head injury heart or circulation problems kidney disease or problems going to the bathroom liver disease lung disease, asthma, or breathing problems an unusual or allergic reaction to acetaminophen, hydrocodone, other opioid analgesics, other medicines, foods, dyes, or preservatives or trying to get breast-feeding What should I watch for while using this medicine? Tell your doctor or health long term care phlebotomist if your pain does not go away, if it gets worse, or if you have new or a different type of pain. You may develop tolerance to the medicine. Tolerance means that you will need a higher dose of the medicine for pain relief. Tolerance is normal and is expected if you take the medicine for a long time. Do not suddenly stop taking your medicine because you may develop a severe reaction. Your body becomes used to the medicine. This does NOT mean you are addicted. Addiction is a behavior related to getting and using a drug for a non-medical reason. If you have pain, you have a medical reason to take pain medicine. Your doctor will tell you how much medicine to take. If your doctor wants you to stop the medicine, the dose will be slowly lowered over time to avoid any side effects. You may get drowsy or dizzy when you first start taking the medicine or change doses. Do not drive, use machinery, or do anything that may be dangerous until you know how the medicine affects you. Stand or sit up slowly. There are different types of narcotic medicines (opiates) for pain. If you take more than one type at the same time, you may have more side effects. Give your health care provider a list of all medicines you use. Your doctor will tell you how much medicine to take. Do not take more medicine than directed. Call emergency for help if you have problems breathing. The medicine will cause constipation. Try to have a bowel movement at least every 2 to 3 days. If you do not have a bowel movement for 3 days, call your doctor or health long term care phlebotomist. Too much acetaminophen can be very dangerous. Do not take Tylenol (acetaminophen) or medicines that contain acetaminophen with this medicine. Many non-prescription medicines contain acetaminophen. Always read the labels carefully. You have been given the following additional information: Navicular Fracture, Wrist (Confirmed) Hydrocodone Bitartrate, Acetaminophen Oral tablet (Electronically signed by Charlie Palma MD 09/03/2016 14:28)
--- NOTE | 2016-09-03 14:28 | ED MED RECONCILIATION SUMMARY ---
Patient: ANTHONY DOMINIQUE Medication Reconciliation Report [facility] VisitID: [id number] [address] [place] [address] 25y, M Registration Date/Time: 08/31/2016 Weight: 74.8 kg Height/Length: 71 in. BMI: 23.0 ALLERGIES: No Known Drug Allergy The patient's Home Medications are listed below: NONE. The source(s) of the original Home Medication information: patient The following Medications were given to the patient in the Emergency Department: Percocet [PO] PO 1 tab, administered: 08/31/2016 5:56:00 AM The following Medications were prescribed to the patient: Hydrocodone/APAP 5mg / 325mg: take 1-2 orally every 4 hours as needed. Dispense twenty (20). No refill. -- Charlie Palma MD
--- NOTE | 2016-09-03 14:28 | ED MAR SUMMARY ---
..... Medication Administration Record [facility] [address] [place] [address] Patient: ANTHONY DOMINIQUE Visit ID: [id number] 25y, M Weight: 74.8 kg Height/Length: 71 in BMI: 23 ALLERGIES: No Known Drug Allergy Given 05:56 08/31/2016 Сергей Anders R.N. Medication Administered: PERCOCET [PO] (OXYCODONE-ACETAMINOPHEN), Dose: 1 tab 5/325 mg Tablets PO. Medication Ordered: Percocet PO 5/325 mg (One tab).
--- NOTE | 2016-09-03 14:28 | ED MED RECONCILIATION SUMMARY ---
Patient: ANTHONY DOMINIQUE Medication Reconciliation Report [facility] VisitID: [id number] [address] [place] [address] 25y, M Registration Date/Time: 08/31/2016 Weight: 74.8 kg Height/Length: 71 in. BMI: 23.0 ALLERGIES: No Known Drug Allergy The patient's Home Medications are listed below: NONE. The source(s) of the original Home Medication information: patient The following Medications were given to the patient in the Emergency Department: Percocet [PO] PO 1 tab, administered: 08/31/2016 5:56:00 AM The following Medications were prescribed to the patient: Hydrocodone/APAP 5mg / 325mg: take 1-2 orally every 4 hours as needed. Dispense twenty (20). No refill. -- Charlie Palma MD
--- NOTE | 2016-09-03 14:28 | ED MAR SUMMARY ---
..... Medication Administration Record [facility] [address] [place] [address] Patient: ANTHONY DOMINIQUE Visit ID: [id number] 25y, M Weight: 74.8 kg Height/Length: 71 in BMI: 23 ALLERGIES: No Known Drug Allergy Given 05:56 08/31/2016 Сергей Anders R.N. Medication Administered: PERCOCET [PO] (OXYCODONE-ACETAMINOPHEN), Dose: 1 tab 5/325 mg Tablets PO. Medication Ordered: Percocet PO 5/325 mg (One tab).
--- NOTE | 2016-09-03 14:28 | ED DISCHARGE INSTRUCTIONS ---
Patient: ANTHONY DOMINIQUE General Instructions [facility] VisitID: [id number] [address] [place] [address] 25y, M Registration Date/Time: 08/31/2016 Closed nondisplaced fracture of the middle one-third of the left navicular (of the wrist). INSTRUCTIONS Apply ice. Elevate affected areas above chest level. Wear sling and splint. Prescription Medications: Hydrocodone/APAP 5mg / 325mg: take 1-2 orally every 4 hours as needed. Dispense twenty (20). No refill. Follow-up with: [facility], , [address] [place], [address] Follow up. Reason for referral: "navicular bone fracture care". ADDITIONAL INFORMATION Navicular Fracture (Wrist) [Certain] You have a fracture (break) of one of the small bones of your wrist. This bone heals slowly and you may need to be in a cast for up to three months. Some navicular fractures do not heal properly and require surgery at a later time. HOME CARE: 1) Keep your arm elevated to reduce pain and swelling. When sitting or lying down elevate your arm above the level of your heart. You can do this by placing your arm on a pillow that rests on your chest or on a pillow at your side. This is most important during the first 48 hours after injury. 2) Apply an ice pack (ice cubes in a plastic bag, wrapped in a towel) over the injured area for 20 minutes every 1-2 hours the first day. You can place the ice pack inside the sling and directly over the splint/cast. Continue with ice packs 3-4 times a day for the next two days, then as needed for the relief of pain and swelling. 3) Keep the cast/splint completely dry at all times. Bathe with your cast/splint out of the water, protected with a large plastic bag, rubber-banded at the top end. If a fiberglass cast/splint gets wet, you can dry it with a hair-dryer. 4) You may use acetaminophen (Tylenol) or ibuprofen (Motrin, Advil) to control pain, unless another pain medicine was prescribed. [ NOTE : If you have chronic liver or kidney disease or ever had a stomach ulcer or GI bleeding, talk with your doctor before using these medicines.] 5) If you smoke, try to quit. Tobacco use can interfere with the healing of this fracture and increase risk of a complication needing surgery. Follow Up with your doctor in one week, or as advised by our staff, to be sure the bone is healing properly. If a splint was applied, it will be changed to a cast during your follow-up visit. When you come out of the cast, you will need to have special hand and wrist exercises to recover your strength and range of motion. Some people develop permanent stiffness in the wrist after this type of injury. [NOTE: X-rays will be reviewed by a radiologist. You will be notified of any new findings that may affect your care.] Get Prompt Medical Attention if any of the following occur: -- The plaster cast or splint becomes wet or soft -- The fiberglass cast or splint remains wet for more than 24 hours -- Increased tightness or pain under the cast or splint -- Fingers become swollen, cold, blue, numb or tingly Hydrocodone Bitartrate, Acetaminophen Oral tablet What is this medicine? ACETAMINOPHEN; HYDROCODONE (a set a ELIZABETH yasir fen; gucci droe KOE done) is a pain reliever. It is used to treat mild to moderate pain. How should I use this medicine? Take this medicine by mouth. Swallow it with a full glass of water. Follow the directions on the prescription label. If the medicine upsets your stomach, take the medicine with food or milk. Do not take more than you are told to take. Talk to your curriculum development coordinator regarding the use of this medicine in children. This medicine is not approved for use in children. What side effects may I notice from receiving this medicine? Side effects that you should report to your doctor or health personal care aide as soon as possible: allergic reactions like skin rash, itching or hives, swelling of the face, lips, or tongue breathing problems confusion feeling faint or lightheaded, falls stomach pain yellowing of the eyes or skin Side effects that usually do not require medical attention (report to your doctor or health personal care aide if they continue or are bothersome): nausea, vomiting stomach upset What may interact with this medicine? alcohol antihistamines isoniazid medicines for depression, anxiety, or psychotic disturbances medicines for sleep muscle relaxants naltrexone narcotic medicines (opiates) for pain phenobarbital ritonavir tramadol What if I miss a dose? If you miss a dose, take it as soon as you can. If it is almost time for your next dose, take only that dose. Do not take double or extra doses. Where should I keep my medicine? Keep out of the reach of children. This medicine can be abused. Keep your medicine in a safe place to protect it from theft. Do not share this medicine with anyone. Selling or giving away this medicine is dangerous and against the law. Store at room temperature between 15 and 30 degrees C (59 and 86 degrees F). Protect from light. Keep container tightly closed. Throw away any unused medicine after the expiration date. Discard unused medicine and used packaging carefully. Pets and children can be harmed if they find used or lost packages. What should I tell my health care provider before I take this medicine? They need to know if you have any of these conditions: brain tumor Crohn's disease, inflammatory bowel disease, or ulcerative colitis drink more than 3 alcohol-containing drinks per day drug abuse or addiction head injury heart or circulation problems kidney disease or problems going to the bathroom liver disease lung disease, asthma, or breathing problems an unusual or allergic reaction to acetaminophen, hydrocodone, other opioid analgesics, other medicines, foods, dyes, or preservatives or trying to get breast-feeding What should I watch for while using this medicine? Tell your doctor or health personal care aide if your pain does not go away, if it gets worse, or if you have new or a different type of pain. You may develop tolerance to the medicine. Tolerance means that you will need a higher dose of the medicine for pain relief. Tolerance is normal and is expected if you take the medicine for a long time. Do not suddenly stop taking your medicine because you may develop a severe reaction. Your body becomes used to the medicine. This does NOT mean you are addicted. Addiction is a behavior related to getting and using a drug for a non-medical reason. If you have pain, you have a medical reason to take pain medicine. Your doctor will tell you how much medicine to take. If your doctor wants you to stop the medicine, the dose will be slowly lowered over time to avoid any side effects. You may get drowsy or dizzy when you first start taking the medicine or change doses. Do not drive, use machinery, or do anything that may be dangerous until you know how the medicine affects you. Stand or sit up slowly. There are different types of narcotic medicines (opiates) for pain. If you take more than one type at the same time, you may have more side effects. Give your health care provider a list of all medicines you use. Your doctor will tell you how much medicine to take. Do not take more medicine than directed. Call emergency for help if you have problems breathing. The medicine will cause constipation. Try to have a bowel movement at least every 2 to 3 days. If you do not have a bowel movement for 3 days, call your doctor or health personal care aide. Too much acetaminophen can be very dangerous. Do not take Tylenol (acetaminophen) or medicines that contain acetaminophen with this medicine. Many non-prescription medicines contain acetaminophen. Always read the labels carefully. You have been given the following additional information: Navicular Fracture, Wrist (Confirmed) Hydrocodone Bitartrate, Acetaminophen Oral tablet (Electronically signed by Charlie Palma MD 09/03/2016 14:28)
== END 2016-08-31 06:18 | disposition home or self-care (01) ==
LOC: ED SRH 04:25
DX: S62.025A Nondisplaced fracture of middle third of navicular [scaphoid] bone of left wrist, initial encounter for closed fracture (principal); V18.0XXA Pedal cycle driver injured in noncollision transport accident in nontraffic accident, initial encounter; Y93.55 Activity, bike riding; Y92.830 Public park as the place of occurrence of the external cause; Z72.0 Tobacco use